=== PATIENT | female | born 1995 ===

== ENCOUNTER 2022-04-17 15:35 | Emergency (ER) | payer SELFPAY ==
[2022-04-17 15:45] VITALS: BP 114/77
== END 2022-04-17 20:35 | disposition left against medical advice (07) ==
LOC: ED 15:35
DX: R10.9 Unspecified abdominal pain (principal); M54.9 Dorsalgia, unspecified; Z53.21 Procedure and treatment not carried out due to patient leaving prior to being seen by health care provider